=== PATIENT | female | born 1985 | race Caucasian/White ===

== ENCOUNTER 2017-09-15 18:01 | Emergency (ER) | payer OTHER | END 2017-09-15 18:58 | disposition home or self-care (01) | LOC: FTE 18:01 | DX: S13.4XXA Sprain of ligaments of cervical spine, initial encounter (principal); B02.9 Zoster without complications; V89.2XXA Person injured in unspecified motor-vehicle accident, traffic, initial encounter | CPT/HCPCS: 99284; Z7502 ==